=== PATIENT | female | born 1960 | race Caucasian/White ===

== ENCOUNTER 2016-11-22 16:14 | Inpatient (IN) | payer SELFPAY ==
[2016-11-22 17:50] LABS: Basophils % (Auto) 0.3 % (0.0-1.8); Eosinophils % (Auto) 1.2 % (0.0-4.3); Hemoglobin 15.4 gm/dl (10.1-14.3); Mean Corpuscular HGB Conc 33 % (30-34); Mean Corpuscular Hemoglobin 28 pg (28-32); Mean Corpuscular Volume 84 fl (79-97); Platelet Count 248 K/mm3 (140-440); Red Blood Count 5.49 M/mm3 (3.65-5.03); Red Cell Distribution Width 14.2 % (13.2-15.2); White Blood Count 5.8 K/mm3 (4.5-11.0)
[2016-11-22 18:06] LABS: BUN/Creatinine Ratio 13.63; Chloride 89.1 mmol/L (98-107); Potassium 5.1 mmol/L (3.6-5.0)
[2016-11-22] MEDS ORDERED: DIFLUCAN PO ONE (19:27)
[2016-11-22] MEDS ORDERED: NACL 0.9% 1000 ML 1,000 ML IV ONE ×3 (19:27→21:29)
--- NOTE | 2016-11-22 19:47 | Emergency Department Report ---
- General Chief complaint: Hyperglycemia Stated complaint: WEAKNESS Time Seen by Provider: 11/22/16 19:17 Source: patient Mode of arrival: Ambulatory Limitations: No Limitations - History of Present Illness Initial comments: 56-year-old female with a past medical history [id number] diabetes, hypertension, and elevated cholesterol presents to the hospital complaints of elevated blood glucose. Patient has been having an increased thirst, polyuria, and polydipsia with intermittent dizziness 2 weeks. Patient does not monitor her glucose at home. She's been compliant with her metformin twice a day medication. Last night while standing she had a syncopal episode. No complaints of headache, chest pain, shortness breath, vomiting, or diarrhea. Positive nausea reported. Patient denies dysuria for complaints of vaginal discharge similar to previous yeast infections. - Related Data Home Medications Medication Instructions Recorded Confirmed Last Taken [place]-3 Fatty Acids/Fish Oil [Fish 1,000 mg PO TID 11/22/16 11/22/16 Unknown Oil] Pravastatin Sodium [Pravastatin] 10 mg PO QHS 11/22/16 11/22/16 Unknown Propranolol [Inderal] 40 mg PO BID 11/22/16 11/22/16 Unknown Venlafaxine HCl [Venlafaxine HCl 150 mg PO DAILY 11/22/16 11/22/16 Unknown ER] metFORMIN [Glucophage] 500 mg PO BID 11/22/16 11/22/16 Unknown Allergies Allergy/AdvReac Type Severity Reaction Status Date / Time No Known Allergies Allergy Unverified 11/22/16 16:46 ED Review of Systems ROS: Stated complaint: WEAKNESS Other details as noted in HPI Comment: All other systems reviewed and negative Other: Constitutional: No fevers chills Eyes: No eye pain visual changes ENT: dry mouth Neck: Denies pain Respiratory: Denies cough wheezing shortness of breath Cardiovascular: Denies chest pain, palpitations, syncope Endocrine: as per hpi GI: Denies abdominal pain, vomiting, diarrhea : As per HPI Musculoskeletal: Denies back pain Neurologic: Denies headache, numbness, weakness Psychiatric: Denies suicidal ideation, hallucinations ED Past Medical Hx - Past Medical History Previous Medical History?: Yes Hx Hypertension: Yes Hx Diabetes: Yes Additional medical history: high cholesterol - Surgical History Past Surgical History?: Yes Hx Cholecystectomy: Yes Additional Surgical History: partial hysterectomy - Social History Smoking Status: Former Smoker Substance Use Type: None - Medications Home Medications: Home Medications Medication Instructions Recorded Confirmed Last Taken Type [place]-3 Fatty Acids/Fish Oil [Fish 1,000 mg PO TID 11/22/16 11/22/16 Unknown History Oil] Pravastatin Sodium [Pravastatin] 10 mg PO QHS 11/22/16 11/22/16 Unknown History Propranolol [Inderal] 40 mg PO BID 11/22/16 11/22/16 Unknown History Venlafaxine HCl [Venlafaxine HCl 150 mg PO DAILY 11/22/16 11/22/16 Unknown History ER] metFORMIN [Glucophage] 500 mg PO BID 11/22/16 11/22/16 Unknown History ED Physical Exam - General Limitations: No Limitations - Other Other exam information: General: No limitations, patient is alert in no acute distress Head exam: Atraumatic, normocephalic Eyes exam: Normal appearance ENT: Dry mucous membranes Neck exam: Normal inspection, full range of motion, no meningismus nontender Respiratory exam: Clear to auscultation bilateral, no wheezes, rales, crackles Cardiovascular: Normal rate and rhythm, normal heart sounds Abdomen: Soft, nondistended, and nontender, with normal bowel sounds, no rebound, or guarding Extremity: Full range of motion normal inspection no deformity Back: Normal Inspection, full range of motion, no tenderness Neurologic: Alert, oriented x3, cranial nerves intact, no motor or sensory deficit Psychiatric: normal affect, normal mood Skin: Warm, dry, intact ED Course Vital Signs 11/22/16 11/22/16 11/22/16 16:41 18:53 19:00 Temperature 98 F Pulse Rate 82 75 73 Respiratory 16 13 Rate Blood Pressure 132/75 127/76 O2 Sat by Pulse 95 93 Oximetry 11/22/16 11/22/16 19:39 20:00 Temperature Pulse Rate 76 71 Respiratory 21 Rate Blood Pressure 127/76 152/86 O2 Sat by Pulse 91 98 Oximetry - Reevaluation(s) Reevaluation #1: 11/22/16 20:21 Regular insulin, , Diflucan 150, normal saline ordered ED Medical Decision Making - Lab Data Result diagrams: 11/22/16 17:24 11/22/16 17:24 Lab Results 11/22/16 11/22/16 11/22/16 Range/Units 16:26 17:24 17:24 WBC 5.8 (4.5-11.0) K/mm3 RBC 5.49 H (3.65-5.03) M/mm3 Hgb 15.4 H (10.1-14.3) gm/dl Hct 46.0 H (30.3-42.9) % MCV 84 (79-97) fl MCH 28 (28-32) pg MCHC 33 (30-34) % RDW 14.2 (13.2-15.2) % Plt Count 248 (140-440) K/mm3 Lymph % (Auto) 17.9 (13.4-35.0) % Stephens % (Auto) 13.2 H (0.0-7.3) % Eos % (Auto) 1.2 (0.0-4.3) % Baso % (Auto) 0.3 (0.0-1.8) % Lymph # 1.0 L (1.2-5.4) K/mm3 Stephens # 0.8 (0.0-0.8) K/mm3 Eos # 0.1 (0.0-0.4) K/mm3 Baso # 0.0 (0.0-0.1) K/mm3 Seg Neutrophils % 67.4 (40.0-70.0) % Seg Neutrophils # 3.9 (1.8-7.7) K/mm3 VBG pH (7.320-7.420) Sodium 133 L (137-145) mmol/L Potassium 5.1 H (3.6-5.0) mmol/L Chloride 89.1 L (98-107) mmol/L Carbon Dioxide 24 (22-30) mmol/L Anion Gap 25 mmol/L BUN 15 (7-17) mg/dL Creatinine 1.1 (0.7-1.2) mg/dL Estimated GFR 51 ml/min BUN/Creatinine Ratio 13.63 % Glucose 1058 H* (65-100) mg/dL POC Glucose > 500 H (70-105) Calcium 10.0 (8.4-10.2) mg/dL 11/22/16 Range/Units 17:24 WBC (4.5-11.0) K/mm3 RBC (3.65-5.03) M/mm3 Hgb (10.1-14.3) gm/dl Hct (30.3-42.9) % MCV (79-97) fl MCH (28-32) pg MCHC (30-34) % RDW (13.2-15.2) % Plt Count (140-440) K/mm3 Lymph % (Auto) (13.4-35.0) % Stephens % (Auto) (0.0-7.3) % Eos % (Auto) (0.0-4.3) % Baso % (Auto) (0.0-1.8) % Lymph # (1.2-5.4) K/mm3 Stephens # (0.0-0.8) K/mm3 Eos # (0.0-0.4) K/mm3 Baso # (0.0-0.1) K/mm3 Seg Neutrophils % (40.0-70.0) % Seg Neutrophils # (1.8-7.7) K/mm3 VBG pH 7.307 L (7.320-7.420) Sodium (137-145) mmol/L Potassium (3.6-5.0) mmol/L Chloride (98-107) mmol/L Carbon Dioxide (22-30) mmol/L Anion Gap mmol/L BUN (7-17) mg/dL Creatinine (0.7-1.2) mg/dL Estimated GFR ml/min BUN/Creatinine Ratio % Glucose (65-100) mg/dL POC Glucose (70-105) Calcium (8.4-10.2) mg/dL - EKG Data -: EKG Interpreted by Me (sinus 79 nonspecific T-wave abnormality) - EKG Data When compared to previous EKG there are: previous EKG unavailable - Medical Decision Making Patient does not have overt DKA at this time but glucose is significantly elevated despite medication. She'll be admitted to the hospital for treatment of acute significant hyperglycemia and home medication adjustment. Rocephin ordered for UTI. Case discussed with admitting Dr Brooks. Recommends upgrade to ICU and insulin drip - Differential Diagnosis Dka, hypoglycemia, yeast vaginitis, UTI Critical Care Time: No Critical care attestation.: If time is entered above; I have spent that time in minutes in the direct care of this critically ill patient, excluding procedure time. ED Disposition Clinical Impression: Hyperglycemia due to type 2 diabetes mellitus, UTI (urinary tract infection), Syncope Disposition: DC-09 OP ADMIT IP TO THIS HOSP Is pt being admited?: Yes Condition: Stable Time of Disposition: 19:47 (Dr West/hosp)
[2016-11-22 20:39] LABS: Bilirubin,Urine NEG (Negative); Blood,Urine SM (Negative); Ketones,Urine 20 mg/dL (Negative); Leukocyte Esterase,Urine LG (Negative); Nitrite,Urine NEG (Negative); Protein,Urine <15 mg/dL mg/dL (Negative); Urobilinogen,Urine < 2.0 mg/dL (<2.0)
[2016-11-22] MEDS ORDERED: NACL 0.9% 1000 ML 1,000 ML ONE (21:18)
[2016-11-22] MEDS ORDERED: ROCEPHIN/NS 1 GM/50 ML 1 GM/50 ML BAG IV ONE ×2 (21:47→22:40)
[2016-11-22] MEDS ORDERED: D50W (25GM) Syringe IV PRN (21:52)
[2016-11-22] MEDS ORDERED: NovoLIN R 100 UNITS in NACL 0.9% 99 ML IV SCH (22:00)
--- NOTE | 2016-11-22 22:34 | History and Physical Report ---
History of Present Illness Date of examination: 11/22/16 Date of admission: 11/22/16 19:47 Chief complaint: Generalized weakness and dizziness Syncope History of present illness: Patient is 56-year-old with history of diabetes,hypertension, hyperlipidemia, anxiety and depression. She presents with generalized weakness and dizziness for 2 weeks. For diabetes she has been on metformin and states that she has been compliant with her medications. On day of admission she had a syncopal episode she states she was sitting and watching TV when she suddenly passed out . after gaining consciousness, she called the paramedics and was brought to the emergency department for evaluation. In ED her glucose was 1058. She was diagnosed with hyperosmolar hyperglycemic syndrome she was given IV fluids and insulin. She was to be admitted to the intensive care unit however blood sugar improved came down to 362. She will now be admitted to medical surgical floor. Past History Past Medical History: diabetes, hypertension, hyperlipidemia, other (anxiety, depression, obesity) Past Surgical History: cholecystectomy, hysterectomy (partial) Social history: full code, other (alcohol occasionally). denies: smoking Family history: CAD, diabetes Medications and Allergies Allergies Allergy/AdvReac Type Severity Reaction Status Date / Time No Known Allergies Allergy Unverified 11/22/16 16:46 Home Medications Medication Instructions Recorded Confirmed Last Taken Type [place]-3 Fatty Acids/Fish Oil [Fish 1,000 mg PO TID 11/22/16 11/22/16 Unknown History Oil] Pravastatin Sodium [Pravastatin] 10 mg PO QHS 11/22/16 11/22/16 Unknown History Propranolol [Inderal] 40 mg PO BID 11/22/16 11/22/16 Unknown History Venlafaxine HCl [Venlafaxine HCl 150 mg PO DAILY 11/22/16 11/22/16 Unknown History ER] metFORMIN [Glucophage] 500 mg PO BID 11/22/16 11/22/16 Unknown History Active Meds: Active Medications Dextrose (D50w (25gm)) 0 ml IV PRN PRN PRN Reason: Hypoglycemia Insulin Human Regular 100 (units/ Sodium Chloride) 100 mls @ 1 mls/hr IV TITR KORINA; 1 UNITS/HR PRN Reason: Protocol Review of Systems All systems: negative (no fever, no headache, no abdominal pain. All other systems reviewed and are negative) Exam - Physical Exam Narrative exam: Gen appearance: not in acute distress, obese HEENT: normocephalic, atraumatic Neck:supple, no JVD, Lungs: clear to auscultation bilaterally, no crackles or wheezes Heart :S1 and S2 regular, no murmurs, rubs or gallop Abdomen: Soft, nontender,nondistended normal bowel sounds Extremities :no edema no clubbing or cyanosis Neuro: Awake, alert oriented 3, normal speech,no focal neurological signs - Constitutional Vitals: Temp Pulse Resp BP Pulse Ox 98 F 67 19 157/91 96 11/22/16 16:41 11/22/16 22:00 11/22/16 22:00 11/22/16 22:00 11/22/16 22:00 Results - Labs CBC & Chem 7: 11/22/16 17:24 11/23/16 03:21 Labs: Abnormal lab results 11/22/16 Range/Units 21:13 POC Glucose > 500 H (70-105) Assessment and Plan Hyperosmolar hyperglycemic syndrome. Admit to medical surgical floor. On initial presentation on her glucose was 1058, now down to 362. Start subcutaneous Novolin 70/30 twice a day. Fingerstick glucose before every meal and at bedtime. Check hemoglobin A1c. Diabetes mellitus type 2 Syncope likely due to dehydration. Obtain orthostatic vitals every shift. We' ll also obtain echocardiogram. Hyperkalemia with potassium 5.1. Monitor. Hyponatremia with sodium 133. start NS fluid infusion. UTI. start Rocephin iv Vaginitis. diflucan Hypertension. BP stable. Resume meds from home. DVT prophylaxis wuith Lovenox Hyperlipidemia
[2016-11-22] MEDS ORDERED: D5W/0.45% NACL/KCL 20 MEQ 20 MEQ/1,000 ML BAG IV SCH (23:00)
[2016-11-23 00:21] LABS: Anion Gap 19 mmol/L; BUN/Creatinine Ratio 15.71; Blood Urea Nitrogen 11 mg/dL (7-17); Calcium 9.1 mg/dL (8.4-10.2); Carbon Dioxide 25 mmol/L (22-30); Chloride 98.4 mmol/L (98-107); Glucose 373 mg/dL (65-100); Potassium 4.5 mmol/L (3.6-5.0); Sodium 138 mmol/L (137-145)
[2016-11-23 00:22] LABS: Magnesium 1.8 mg/dL (1.7-2.3); Phosphorous 3.5 mg/dL (2.5-4.5)
[2016-11-23] MEDS ORDERED: PEPCID IV ONE (01:30)
[2016-11-23] MEDS: PEPCID IV SCH ×3 (01:34→22:46)
[2016-11-23] MEDS ORDERED: D50W (25GM) Syringe IV PRN (02:45)
[2016-11-23 04:32] LABS: BUN/Creatinine Ratio 16.66; Blood Urea Nitrogen 10 mg/dL (7-17); Calcium 9.1 mg/dL (8.4-10.2); Carbon Dioxide 22 mmol/L (22-30); Glucose 362 mg/dL (65-100)
[2016-11-23 04:33] LABS: Anion Gap 22 mmol/L; Chloride 100.3 mmol/L (98-107); Potassium 4.1 mmol/L (3.6-5.0); Sodium 140 mmol/L (137-145)
[2016-11-23] MEDS: NACL 0.9% 1000 ML 1,000 ML IV SCH ×2 (06:01→18:08)
[2016-11-23] MEDS: NOVOLOG SUB-Q SCH ×4 (09:02→22:44)
[2016-11-23] MEDS: FISH OIL PO SCH ×4 (09:07→20:07)
[2016-11-23] MEDS: ROCEPHIN/NS 1 GM/50 ML 1 GM/50 ML BAG IV SCH (10:47)
[2016-11-23] MEDS: INDERAL PO SCH ×2 (10:48→22:46)
[2016-11-23] MEDS: LOVENOX SUB-Q SCH (10:48)
[2016-11-23] MEDS: EFFEXOR XR PO SCH (10:50)
[2016-11-23] MEDS: TYLENOL PO PRN (10:51)
--- NOTE | 2016-11-23 11:18 | Progress Note ---
Assessment and Plan Assessment and plan: --Uncontrolled diabetes mellitus Accu-Chek sliding scale coverage and ADA diet and insulin Increase 7030 insulin to 15 units twice a day, patient's hemoglobin A1c is 14.8 --The urinary tract infection; Continue Rocephin, IV fluids, follow cultures and adjust --Hyperosmolar ketotic hypoglycemia ; sugars improved significantly still elevated Probably secondary to noncompliance, HbA1c 14.8 --Syncope / dehydration. Probably secondary to hyperglycemia and dehydration, closely monitor, fall precautions -- pseudohyponatremia ; secondary to hyperglycemia, now corrected --Vaginitis; received Diflucan and supportive care --Hypertension: Controlled, continue current antihypertensives and when necessary medications --Dyslipidemia; stable on lipid-lowering medications --DVT prophylaxis with Lovenox Monitor the patient and adjust management as needed Plan of care discussed with the patient as well as her nurse History Interval history: Patient seen and evaluated medical records reviewed No new events reported by nursing staff Admitted with hyperosmolar nonketotic hyperglycemia Sugars are reasonable levels, patient has no new complaints Hospitalist Physical - Constitutional Vitals: Temp Pulse Resp BP Pulse Ox 98.7 F 66 20 127/82 96 11/23/16 08:00 11/23/16 10:48 11/23/16 08:00 11/23/16 10:48 11/23/16 08:00 General appearance: Present: no acute distress, well-nourished - EENT Eyes: Present: PERRL, EOM intact - Neck Neck: Present: supple, normal ROM - Respiratory Respiratory effort: normal Respiratory: bilateral: diminished, negative: rales, rhonchi, wheezing - Cardiovascular Rhythm: regular Heart Sounds: Present: S1 & S2 - Extremities Extremities: no ischemia, pulses intact - Abdominal General gastrointestinal: soft, non-tender - Integumentary Integumentary: Present: clear, warm - Psychiatric Psychiatric: appropriate mood/affect, cooperative - Neurologic Neurologic: CNII-XII intact, moves all extremities Results - Labs CBC & Chem 7: 11/22/16 17:24 11/23/16 03:21 Labs: Laboratory Last Values WBC 5.8 K/mm3 (4.5-11.0) 11/22/16 17:24 RBC 5.49 M/mm3 (3.65-5.03) H 11/22/16 17:24 Hgb 15.4 gm/dl (10.1-14.3) H 11/22/16 17:24 Hct 46.0 % (30.3-42.9) H 11/22/16 17:24 MCV 84 fl (79-97) 11/22/16 17:24 MCH 28 pg (28-32) 11/22/16 17:24 MCHC 33 % (30-34) 11/22/16 17:24 RDW 14.2 % (13.2-15.2) 11/22/16 17:24 Plt Count 248 K/mm3 (140-440) 11/22/16 17:24 Lymph % (Auto) 17.9 % (13.4-35.0) 11/22/16 17:24 Becker % (Auto) 13.2 % (0.0-7.3) H 11/22/16 17:24 Eos % (Auto) 1.2 % (0.0-4.3) 11/22/16 17:24 Baso % (Auto) 0.3 % (0.0-1.8) 11/22/16 17:24 Lymph # 1.0 K/mm3 (1.2-5.4) L 11/22/16 17:24 Becker # 0.8 K/mm3 (0.0-0.8) 11/22/16 17:24 Eos # 0.1 K/mm3 (0.0-0.4) 11/22/16 17:24 Baso # 0.0 K/mm3 (0.0-0.1) 11/22/16 17:24 Seg Neutrophils % 67.4 % (40.0-70.0) 11/22/16 17:24 Seg Neutrophils # 3.9 K/mm3 (1.8-7.7) 11/22/16 17:24 VBG pH 7.307 (7.320-7.420) L 11/22/16 17:24 Sodium 140 mmol/L (137-145) 11/23/16 03:21 Potassium 4.1 mmol/L (3.6-5.0) 11/23/16 03:21 Chloride 100.3 mmol/L (98-107) 11/23/16 03:21 Carbon Dioxide 22 mmol/L (22-30) 11/23/16 03:21 Anion Gap 22 mmol/L 11/23/16 03:21 BUN 10 mg/dL (7-17) 11/23/16 03:21 Creatinine 0.6 mg/dL (0.7-1.2) L 11/23/16 03:21 Estimated GFR > 60 ml/min 11/23/16 03:21 BUN/Creatinine Ratio 16.66 % 11/23/16 03:21 Glucose 362 mg/dL (65-100) H 11/23/16 03:21 POC Glucose 345 (70-105) H 11/23/16 05:00 Hemoglobin A1c 14.8 % (4-6) H 11/22/16 23:33 Calcium 9.1 mg/dL (8.4-10.2) 11/23/16 03:21 Phosphorus 3.50 mg/dL (2.5-4.5) 11/22/16 23:33 Magnesium 1.80 mg/dL (1.7-2.3) 11/22/16 23:33 Urine Color Yellow (Yellow) 11/22/16 19:35 Urine Turbidity Cloudy (Clear) 11/22/16 19:35 Urine pH 5.0 (5.0-7.0) 11/22/16 19:35 Ur Specific [place] 1.029 (1.003-1.030) 11/22/16 19:35 Urine Protein <15 mg/dl mg/dL (Negative) 11/22/16 19:35 Urine Glucose (UA) >=500 mg/dL (Negative) 11/22/16 19:35 Urine Ketones 20 mg/dL (Negative) 11/22/16 19:35 Urine Blood Sm (Negative) 11/22/16 19:35 Urine Nitrite Neg (Negative) 11/22/16 19:35 Urine Bilirubin Neg (Negative) 11/22/16 19:35 Urine Urobilinogen < 2.0 mg/dL (<2.0) 11/22/16 19:35 Ur Leukocyte Esterase Lg (Negative) 11/22/16 19:35 Urine WBC (Auto) 35.0 /HPF (0.0-6.0) H 11/22/16 19:35 Urine RBC (Auto) 92.0 /HPF (0.0-6.0) 11/22/16 19:35 U Epithel Cells (Auto) 1.0 /HPF (0-13.0) 11/22/16 19:35 Urine Yeast (Budding) 3+ /HPF 11/22/16 19:35
[2016-11-23] MEDS: ZOCOR PO SCH (22:46)
[2016-11-23] MEDS ORDERED: DIFLUCAN PO ONE (23:00)
[2016-11-24] MEDS: NACL 0.9% 1000 ML 1,000 ML IV SCH ×4 (00:30→21:22)
[2016-11-24] MEDS: FISH OIL PO SCH ×3 (08:49→20:40)
[2016-11-24] MEDS: NOVOLOG SUB-Q SCH ×4 (08:49→22:27)
[2016-11-24] MEDS: ROCEPHIN/NS 1 GM/50 ML 1 GM/50 ML BAG IV SCH (10:18)
[2016-11-24] MEDS: EFFEXOR XR PO SCH (10:19)
[2016-11-24] MEDS: PEPCID PO SCH ×2 (10:20→22:21)
[2016-11-24] MEDS: INDERAL PO SCH ×2 (10:20→22:21)
[2016-11-24] MEDS: LOVENOX SUB-Q SCH (10:22)
[2016-11-24] MEDS ORDERED: PNEUMOVAX 23 IM ONE (12:00)
--- NOTE | 2016-11-24 16:50 | Progress Note ---
Assessment and Plan Assessment and plan: --Uncontrolled diabetes mellitus Increase 7030 insulin dose to 18 units twice a day, Accu-Chek sliding scale coverage ADA diet and insulin Diabetic education, diabetic diet education Accu-Chek sliding scale coverage and ADA diet and insulin Increase 7030 insulin to 15 units twice a day, patient's hemoglobin A1c is 14.8 --The urinary tract infection; Continue Rocephin, IV fluids, follow cultures and adjust --Hyperosmolar non-ketotic hyperglycemia ; sugars improved significantly still elevated Probably secondary to noncompliance, HbA1c 14.8 --Syncope / dehydration. Probably secondary to hyperglycemia and dehydration, closely monitor, fall precautions -- pseudohyponatremia ; secondary to hyperglycemia, now corrected --Vaginitis; received Diflucan and supportive care --Hypertension: Controlled, continue current antihypertensives and when necessary medications --Dyslipidemia; stable on lipid-lowering medications --DVT prophylaxis with Lovenox Aspirin discharge home tomorrow if blood sugars are reasonable level History Interval history: Patient seen and evaluated medical records reviewed Patient feels better no new complaints Blood sugars are still uncontrolled Denies any nausea or vomiting or abdominal pain Hospitalist Physical - Constitutional Vitals: Temp Pulse Resp BP Pulse Ox 98.1 F 56 L 18 117/76 97 11/24/16 08:00 11/24/16 10:20 11/24/16 08:00 11/24/16 10:20 11/24/16 08:00 General appearance: Present: no acute distress, well-nourished - EENT Eyes: Present: PERRL, EOM intact - Neck Neck: Present: supple, normal ROM - Respiratory Respiratory effort: normal Respiratory: bilateral: diminished, negative: rales, rhonchi, wheezing - Cardiovascular Rhythm: regular Heart Sounds: Present: S1 & S2 - Extremities Extremities: no ischemia, pulses intact Peripheral Pulses: within normal limits - Abdominal General gastrointestinal: soft, non-tender, non-distended, normal bowel sounds - Integumentary Integumentary: Present: clear, warm - Psychiatric Psychiatric: appropriate mood/affect, cooperative - Neurologic Neurologic: CNII-XII intact, moves all extremities Results - Labs CBC & Chem 7: 11/22/16 17:24 11/23/16 03:21 Labs: Laboratory Last Values WBC 5.8 K/mm3 (4.5-11.0) 11/22/16 17:24 RBC 5.49 M/mm3 (3.65-5.03) H 11/22/16 17:24 Hgb 15.4 gm/dl (10.1-14.3) H 11/22/16 17:24 Hct 46.0 % (30.3-42.9) H 11/22/16 17:24 MCV 84 fl (79-97) 11/22/16 17:24 MCH 28 pg (28-32) 11/22/16: MCHC 33 % (30-34) 11/22/16 17:24 RDW 14.2 % (13.2-15.2) 11/22/16: Plt Count 248 K/mm3 (140-440) 11/22/16: Lymph % (Auto) 17.9 % (13.4-35.0) 11/22/16: [place] % (Auto) 13.2 % (0.0-7.3) H 11/22/16: Eos % (Auto) 1.2 % (0.0-4.3) 11/22/16: Baso % (Auto) 0.3 % (0.0-1.8) 11/22/16: Lymph # 1.0 K/mm3 (1.2-5.4) L 11/22/16: [place] # 0.8 K/mm3 (0.0-0.8) 11/22/16:24 Eos # 0.1 K/mm3 (0.0-0.4) 11/22/16: Baso # 0.0 K/mm3 (0.0-0.1) 11/22/16: Seg Neutrophils % 67.4 % (40.0-70.0) 11/22/16: Seg Neutrophils # 3.9 K/mm3 (1.8-7.7) 11/22/16: VBG pH 7.307 (7.320-7.420) L 11/22/16 17:24 Sodium 140 mmol/L (137-145) 11/23/16 03:21 Potassium 4.1 mmol/L (3.6-5.0) 11/23/16 03:21 Chloride 100.3 mmol/L (98-107) 11/23/16 03:21 Carbon Dioxide 22 mmol/L (22-30) 11/23/16 03:21 Anion Gap 22 mmol/L 11/23/16 03:21 BUN 10 mg/dL (7-17) 11/23/16 03:21 Creatinine 0.6 mg/dL (0.7-1.2) L 11/23/16 03:21 Estimated GFR > 60 ml/min 11/23/16 03:21 BUN/Creatinine Ratio 16.66 % 11/23/16 03:21 Glucose 362 mg/dL (65-100) H 11/23/16 03:21 POC Glucose 293 (70-105) H 11/24/16 12:08 Hemoglobin A1c 14.8 % (4-6) H 11/22/16 23:33 Calcium 9.1 mg/dL (8.4-10.2) 11/23/16 03:21 Phosphorus 3.50 mg/dL (2.5-4.5) 11/22/16 23:33 Magnesium 1.80 mg/dL (1.7-2.3) 11/22/16 23:33 Urine Color Yellow (Yellow) 11/22/16 19:35 Urine Turbidity Cloudy (Clear) 11/22/16 19:35 Urine pH 5.0 (5.0-7.0) 11/22/16 19:35 Ur Specific [place] 1.029 (1.003-1.030) 11/22/16 19:35 Urine Protein <15 mg/dl mg/dL (Negative) 11/22/16 19:35 Urine Glucose (UA) >=500 mg/dL (Negative) 11/22/16 19:35 Urine Ketones 20 mg/dL (Negative) 11/22/16 19:35 Urine Blood Sm (Negative) 11/22/16 19:35 Urine Nitrite Neg (Negative) 11/22/16 19:35 Urine Bilirubin Neg (Negative) 11/22/16 19:35 Urine Urobilinogen < 2.0 mg/dL (<2.0) 11/22/16 19:35 Ur Leukocyte Esterase Lg (Negative) 11/22/16 19:35 Urine WBC (Auto) 35.0 /HPF (0.0-6.0) H 11/22/16 19:35 Urine RBC (Auto) 92.0 /HPF (0.0-6.0) 11/22/16 19:35 U Epithel Cells (Auto) 1.0 /HPF (0-13.0) 11/22/16 19:35 Urine Yeast (Budding) 3+ /HPF 11/22/16 19:35
[2016-11-24] MEDS: ZOCOR PO SCH (22:21)
--- NOTE | 2016-11-25 01:01 | Admit Criteria Form ---
Admission Criteria Documentation: DIABETES Clinical Indications for Admission to Inpatient Care ([place]/check or initial the applicable condition/criteria) Admission is indicated by 1 or more of the following(1)(2)(3)(4)(5): [ ]a) Diabetic ketoacidosis as indicated by ALL the following(9): [ ]i) Hyperglycemia (eg, plasma glucose greater than 200 mg/ dL (11.1 mmol/L)) [ ]ii) Acidosis (eg, arterial or venous pH less than 7.30, serum bicarbonate level less than 15 mEq/L (mmol/L)) [A] [ ]iii) Moderate ketonuria or ketonemia [X]b) Hyperglycemic hyperosmolar state as indicated by ALL of the following: [X]i) Plasma glucose greater than 600 mg/dL (33.3 mmol/L) [X]ii) Serum osmolality greater than 320 mOsm/kg (mmol/kg) [X]iii) Neurologic dysfunction (eg, stupor, coma, hemiparesis , seizure)(14) [ ]c) Hyperglycemia requiring inpatient care as indicated by 1 or more of the following: [ ]i) Altered mental status that is severe or persistent [ ]ii) Dehydration that is severe or persistent [ ]iii) Vomiting that is severe or persistent [ ]iv) Unexplained fever or severe infection [ ]v) Significant electrolyte abnormality(e.g., hypokalemia, hyperkalemia, hypernatremia) not responsive to outpatient and observation care treatment Extended stay beyond goal length of stay may be needed for(3)(20) [ ]a) Treatment of precipitating causes(2) [ ]b) Development of significant hypoglycemia(22)(23) [ ]c) Complications of treatment(24) [ ]d) Complications of decompensated diabetes (e.g., acute gastric dilatation, persistent metabolic or neurologic derangement) (25) [ ]e) Active Comorbidities [ ]f) Older patients The original [employer] content created by [email or web address] has been revised. The portions of the content which have been revised are identified through the use of italic text or in bold,and [facility] has neither reviewed nor approved the modified material. All other unmodified content is copyright [employer] [facility]. Please see references footnoted in the original [employer] [facility] edition 2017 Admission Criteria Met: Yes
[2016-11-25] MEDS: NACL 0.9% 1000 ML 1,000 ML IV SCH ×2 (04:40→11:25)
[2016-11-25] MEDS: TYLENOL PO PRN (08:04)
[2016-11-25] MEDS: NOVOLOG SUB-Q SCH ×3 (08:05→17:18)
[2016-11-25 08:29] LABS: Anion Gap 15 mmol/L; Blood Urea Nitrogen 5 mg/dL (7-17); Calcium 7.6 mg/dL (8.4-10.2); Carbon Dioxide 24 mmol/L (22-30); Chloride 107.2 mmol/L (98-107); Glucose 105 mg/dL (65-100); Sodium 143 mmol/L (137-145)
[2016-11-25 08:50] LABS: Potassium 2.9 mmol/L (3.6-5.0)
[2016-11-25] MEDS ORDERED: K-DUR PO ONE ×2 (09:12→14:00)
[2016-11-25] MEDS: INDERAL PO SCH (10:13)
[2016-11-25] MEDS: PEPCID PO SCH (10:17)
[2016-11-25] MEDS: EFFEXOR XR PO SCH (10:17)
[2016-11-25] MEDS: LOVENOX SUB-Q SCH (10:18)
[2016-11-25] MEDS ORDERED: COLACE PO SCH (11:00)
[2016-11-25] MEDS ORDERED: MAGNESIUM SULFATE 2GM/50ML 2 GM/50 ML BAG IV ONE (11:00)
[2016-11-25] MEDS ORDERED: PROCTOSOL-HC PR PRN (11:00)
[2016-11-25] MEDS: FISH OIL PO SCH ×2 (11:09→15:53)
[2016-11-25] MEDS: ROCEPHIN/NS 1 GM/50 ML 1 GM/50 ML BAG IV SCH (11:09)
--- NOTE | 2016-11-25 15:37 | Discharge Summary ---
Providers - Providers Date of Admission: 11/22/16 19:47 Date of discharge: 11/25/16 Attending physician: JEFFREY FOWLER Primary care physician: [facility] Hospitalization Reason for admission: dizziness, syncope, high blood sugars >1000/hyperosmolar nonketotic state Condition: Stable Hospital course: Visit pleasant 56-year-old obese female patient with significant past medical history of hypertension dyslipidemia anxiety disorder and diabetes mellitus was admitted through emergency room with generalized weakness dizziness and syncope Patient was initially evaluated noted to have very high glucose of 1058 in hyperosmolar state patient was admitted to the hospital symptomatically managed With aggressive management and insulin, blood sugars improved to reasonable levels Patient received diabetic education and nutrition counseling The patient also is morbidly obese, counseling done by factor modification and exercise as tolerated and weight reduction, patient verbalized understanding On the day of discharge , patient is comfortable no new complaints, Vital signs are stable [id number] evaluation and physical examination done by me prior to discharge is unremarkable Patient did not have any new episodes of syncope or dizziness, ambulated tolerating oral nutrition Physical examination is unremarkable Patient was treated.Insulin 7030, as well as regular sliding scale coverage, however patient refused insulin prescriptions, and want to resume her metformin as before I increase the metformin dose to 1000 mg a.m. and 500 mg p.m. Patient strongly advised to comply with medications diet and exercises and follow-up visits, verbalized understanding Discharge diagnoses; Hyperosmolar nonketotic hyperglycemia Uncontrolled type 2 diabetes mellitus Dyslipidemia Hypertension Anxiety disorder Morbid obesity Medical noncompliance Disposition: DC-01 TO HOME OR SELFCARE Time spent for discharge: 32 min Core Measure Documentation - Palliative Care Palliative Care/ Comfort Measures: Not Applicable - Core Measures Any of the following diagnoses?: none Exam - Constitutional Vitals: Temp Pulse Resp BP Pulse Ox 98 F 60 18 140/80 97 11/25/16 08:00 11/25/16 10:13 11/25/16 08:00 11/25/16 10:13 11/25/16 08:00 General appearance: Present: no acute distress, well-nourished - EENT Eyes: Present: PERRL, EOM intact - Neck Neck: Present: supple, normal ROM - Respiratory Respiratory effort: normal Respiratory: bilateral: diminished, negative: rales, rhonchi, wheezing - Cardiovascular Rhythm: regular Heart Sounds: Present: S1 & S2 - Extremities Extremities: no ischemia, No edema Peripheral Pulses: within normal limits - Abdominal General gastrointestinal: Present: soft, non-tender, non-distended, normal bowel sounds - Integumentary Integumentary: Present: clear, warm - Musculoskeletal Musculoskeletal: strength equal bilaterally - Psychiatric Psychiatric: appropriate mood/affect, cooperative - Neurologic Neurologic: CNII-XII intact, moves all extremities Plan Activity: no restrictions Diet: diabetic Additional Instructions: Advised to comply with medications and diet, exercises and doctor's visits. Advised dietary modification and exercise as tolerated and weight reduction. Advised outpatient bariatric surgical evaluation for weight reduction program when medically stable Follow up with: PRIMARY CARE, [Primary Care Provider] - 3-5 Days Prescriptions: Docusate Sodium [Colace] 100 mg PO BID PRN #20 capsule PRN Reason: Constipation Hydrocortisone 2.5% [Proctosol-Hc] 1 applic [place] Q8H PRN #1 tube PRN Reason: Hemorrhoids metFORMIN [Glucophage] 500 mg PO QPM #30 tablet Metformin HCl [Glucophage] 1,000 mg PO QAM #30 tab Potassium Chloride 10 meq PO QDAY #5 capsule.er
[2016-11-25 15:44] VITALS: BP 136/78
== END 2016-11-25 19:45 | disposition home or self-care (01) | DRG 638 ==
LOC: ED 16:14 → 3A 19:47 → CC1 23:05 → 3A 11-23 00:40
PROVIDERS: ADMIT Internal Medicine; ATTEND Internal Medicine
PROC: 3E0234Z Introduction of Serum, Toxoid and Vaccine into Muscle, Percutaneous Approach (ICD-10-PCS; principal; 2016-11-24)
DX: E11.00 Type 2 diabetes mellitus with hyperosmolarity without nonketotic hyperglycemic-hyperosmolar coma (NKHHC) (principal); N39.0 Urinary tract infection, site not specified; Z68.41 Body mass index [BMI] 40.0-44.9, adult; E87.1 Hypo-osmolality and hyponatremia; I10 Essential (primary) hypertension; R55 Syncope and collapse; E78.5 Hyperlipidemia, unspecified; F41.9 Anxiety disorder, unspecified; F32.9 Major depressive disorder, single episode, unspecified; E86.0 Dehydration; E87.5 Hyperkalemia; N76.0 Acute vaginitis; E83.42 Hypomagnesemia; E66.01 Morbid (severe) obesity due to excess calories; Z91.14 Patient's other noncompliance with medication regimen; Z23 Encounter for immunization; Z79.84 Long term (current) use of oral hypoglycemic drugs; Z90.49 Acquired absence of other specified parts of digestive tract; Z90.710 Acquired absence of both cervix and uterus; Z83.3 Family history of diabetes mellitus; Z82.49 Family history of ischemic heart disease and other diseases of the circulatory system
CPT/HCPCS: 36415; 80048; 81001; 82805; 82962; 83036; 83735; 84100; 84132; 85025; 87086; 90732; 93005; 93010; 96361; 96365; 96375; 96376; J0696; J1650; J1815; J3475; J7030